=== PATIENT | male | born 1970 | race Two or more races ===

== ENCOUNTER 2023-04-07 10:40 | Inpatient (IN) | payer MEDICAID, OTHER ==
[~2023-04-07] VITALS: Ht 172.7 cm; Wt 67.9 kg
[2023-04-07 11:23] LABS: Urine WBC None Seen /hpf (0 - 3)
[2023-04-07 11:39] LABS: Basophils # (auto) 0 10 ^3/uL (0-0.2); Basophils % (auto) 0.6 % (0.0-2.0); Eosinophils # (auto) 0.1 10 ^3/uL (0-0.8); Hematocrit 45.6 % (41.0-53.0); Hemoglobin 15.3 g/dL (13.5-17.5); Lymphocytes # (auto) 1.2 10 ^3/uL (0.4-5.4); Lymphocytes % (auto) 19.5 % (10.0-50.0); Mean Corpuscular Hemoglobin 32.3 pg (28.0-32.0); Mean Corpuscular Hgb Conc. 33.6 g/dL (32.0-36.0); Monocytes # (auto) 0.4 10 ^3/uL (0-1.3); Monocytes % (auto) 6.9 % (0.0-12.0); Neutrophils # (auto) 4.4 10 ^3/uL (1.6-8.6); Nucleated Red Blood Cells % 0.1 %; Red Blood Cells 4.75 10^6/uL (4.5-5.90); Red Cell Distribution Width 13.8 % (11.8-14.3); White Blood Cell 6.2 10^3/uL (4.4-10.8)
[2023-04-07 11:47] LABS: Albumin 3.8 g/dL (3.4-5.0); Calcium 8.9 mg/dL (8.5-10.1); Magnesium 1.8 mg/dL (1.6-2.6)
[2023-04-07 11:49] LABS: Urine Bacteria NONE SEEN /hpf (None Seen); Urine Blood 1+ /uL (Negative); Urine Clarity Clear (Clear); Urine Color Yellow (Yellow); Urine Mucus MANY (None Seen); Urine Protein, UAD 2+ (Negative); Urine Specific Gravity 1.031 (1.001-1.035); Urine pH 6.5 (5.0-8.0)
[2023-04-07 11:52] LABS: BUN/Creatinine Ratio 20.2 (10.0-20.0); Bilirubin, Total 0.6 mg/dL (0.2-1.0); Total Protein 7.8 g/dL (6.4-8.2)
[2023-04-07] MEDS ORDERED: NITROGLYCERIN 0.4 MG SL TAB SL ONE (13:00)
[2023-04-07] MEDS ORDERED: ASPirin 325 MG TAB PO ONE (13:00)
[2023-04-07] MEDS ORDERED: ACETAMINOPHEN 325 MG TAB PO PRN (17:30)
[2023-04-07] MEDS ORDERED: DEXTROSE (50%) 50ML SYRG IV PRN (17:30)
[2023-04-07] MEDS ORDERED: MORPHINE SULFATE 4 MG/ML SYR/VIAL IV PRN (17:30)
[2023-04-07] MEDS ORDERED: ONDANSETRON HCL 4 MG/2 ML VIAL IV PRN (17:30)
[2023-04-07] MEDS ORDERED: NITROGLYCERIN 0.4 MG SL TAB SL PRN (17:30)
[2023-04-07 18:22] VITALS: PULSE 77
[2023-04-07 18:57] LABS: INR 0.97 (0.9-1.15); Prothrombin Time 10.2 sec (9.3-11.8)
[2023-04-07 19:30] VITALS: PULSE 98; RESP 25; O2SAT 97
[2023-04-07] MEDS ORDERED: InsuLIN REG 1unit/0.01ml Soln (100units/ml) SC SCH (22:00)
[2023-04-07] MEDS ORDERED: ATORVASTATIN 20 MG TAB PO SCH (22:00)
[2023-04-07] MEDS ORDERED: ENOXAPARIN SOD 60 MG/0.6 ML SYRINGE SC SCH (22:00)
[2023-04-07] MEDS: ACCU-CHEK COMFORT CURVE STRIP VI SCH (22:13)
[2023-04-07] MEDS: METOPROLOL TARTRATE 25 MG TAB PO SCH (22:16)
[2023-04-08 05:58] LABS: Basophils # (auto) 0 10 ^3/uL (0-0.2); Basophils % (auto) 0.6 % (0.0-2.0); Eosinophils # (auto) 0.2 10 ^3/uL (0-0.8); Eosinophils % (auto) 3.3 % (0.0-7.0); Hematocrit 43.1 % (41.0-53.0); Hemoglobin 14.7 g/dL (13.5-17.5); Lymphocytes # (auto) 1.8 10 ^3/uL (0.4-5.4); Lymphocytes % (auto) 28.7 % (10.0-50.0); Mean Corpuscular Hemoglobin 32.5 pg (28.0-32.0); Mean Corpuscular Volume 95.4 fL (80.0-100.0); Monocytes # (auto) 0.6 10 ^3/uL (0-1.3); Monocytes % (auto) 9.9 % (0.0-12.0); Neutrophils # (auto) 3.7 10 ^3/uL (1.6-8.6); Neutrophils % (auto) 57.5 % (37.0-80.0); Nucleated Red Blood Cells % 0.1 %; Red Blood Cells 4.52 10^6/uL (4.5-5.90); Red Cell Distribution Width 13.6 % (11.8-14.3); White Blood Cell 6.4 10^3/uL (4.4-10.8)
[2023-04-08 06:08] LABS: Albumin 3.6 g/dL (3.4-5.0); Potassium 3.9 mmol/L (3.5-5.1)
[2023-04-08 06:12] LABS: BUN/Creatinine Ratio 27.1 (10.0-20.0); Bilirubin, Total 0.6 mg/dL (0.2-1.0); Total Protein 7.1 g/dL (6.4-8.2)
[2023-04-08] MEDS ORDERED: InsuLIN REG 1unit/0.01ml Soln (100units/ml) SC SCH (07:00)
[2023-04-08] MEDS: ACCU-CHEK COMFORT CURVE STRIP VI SCH (07:40)
[2023-04-08 08:00] VITALS: PULSE 77; RESP 16; O2SAT 98
[2023-04-08 10:00] VITALS: TEMP 98.3
[2023-04-08] MEDS ORDERED: ASPirin 81 mg TAB PO SCH (10:00)
[2023-04-08] MEDS ORDERED: DOCUSATE SOD 100 MG CAP PO SCH (10:00)
[2023-04-08] MEDS ORDERED: ENOXAPARIN SOD 30 MG/0.3 ML SYRINGE SC SCH (10:00)
[2023-04-08] MEDS: METOPROLOL TARTRATE 25 MG TAB PO SCH (10:57)
[2023-04-08 11:35] VITALS: BP 144/84; PULSE 79; RESP 12; O2SAT 97
== END 2023-04-08 11:42 | disposition left against medical advice (07) | DRG 198 ==
LOC: ER 10:40 → TELE 17:25
PROVIDERS: ADMIT Nurse Practitioner Family; ATTEND Nurse Practitioner Family
DX: I24.9 Acute ischemic heart disease, unspecified (principal); E11.65 Type 2 diabetes mellitus with hyperglycemia; F17.210 Nicotine dependence, cigarettes, uncomplicated; I10 Essential (primary) hypertension; E78.5 Hyperlipidemia, unspecified; R31.9 Hematuria, unspecified; Z53.29 Procedure and treatment not carried out because of patient's decision for other reasons; Z79.82 Long term (current) use of aspirin
CPT/HCPCS: 36415; 71046; 74176; 80053; 80061; 81001; 82962; 83036; 83735; 84484; 85025; 85379; 85610; 93005; 93306; G0378; J1815